=== PATIENT | male | born 1965 | race Caucasian/White ===

== ENCOUNTER 2024-10-12 18:27 | Emergency (ER) | payer MEDICAID ==
[~2024-10-12] VITALS: Ht 162.6 cm; Wt 84.5 kg
[2024-10-12 18:32] VITALS: BP 152/101; PULSE 111; RESP 16; TEMP 99.1; O2SAT 99
[2024-10-12] MEDS: BACITRACIN 0.9 GM PACKET OINTMENT TP ONE (19:28)
== END 2024-10-12 20:32 | disposition home or self-care (01) ==
LOC: EMS 18:27
DX: S01.01XA Laceration without foreign body of scalp, initial encounter (principal); S63.601A Unspecified sprain of right thumb, initial encounter; S09.90XA Unspecified injury of head, initial encounter; F17.210 Nicotine dependence, cigarettes, uncomplicated; F12.90 Cannabis use, unspecified, uncomplicated; Y09 Assault by unspecified means; Y93.89 Activity, other specified; Y92.89 Other specified places as the place of occurrence of the external cause; Y99.8 Other external cause status
CPT/HCPCS: 12001; 70450; 72125; 99284